=== PATIENT | male | born 1945 | race Caucasian/White ===

== ENCOUNTER 2018-12-28 09:40 | Emergency (ER) | payer BC, MEDICARE ==
[2018-12-28 09:57] VITALS: BP 149/89
--- NOTE | 2018-12-28 09:58 | UC ---
Throat Pain/Nasal Loc HPI - HPI Summary HPI Summary: 9 days of sore throat and intermittent cough in the AM. Has been febrile in the beginning reaching 102F. Occasional coughing from mucus that drips into his throat. has not tried anything and nothing makes it better/worse. - History of Current Complaint Chief Complaint: UCGeneralIllness Stated Complaint: SORE THROAT FEVER CONGESTION Time Seen by Provider: 12/28/18 09:57 Hx Obtained From: Patient Pain Intensity: 3 Pain Scale Used: 0-10 Numeric - Allergies/Home Medications Allergies/Adverse Reactions: Allergies Allergy/AdvReac Type Severity Reaction Status Date / Time Penicillins Allergy Hives Verified 12/28/18 09:56 Sulfa (Sulfonamide Allergy Hives Verified 12/28/18 09:56 Antibiotics) contrast dye Allergy anaph Uncoded 12/28/18 09:56 PMH/Surg Hx/FS Hx/Imm Hx - Additional Past Medical History Additional PMH: no chronic conditions. Previously Healthy: Yes - Surgical History Surgical History: Yes Surgery Procedure, Year, and Place: appy craniotomies - Family History Known Family History: Positive: Non-Contributory - Social History Alcohol Use: None Substance Use Type: None Smoking Status (MU): Former Smoker Review of Systems All Other Systems Reviewed And Are Negative: Yes Constitutional: Positive: Fever. Negative: Chills, Fatigue Skin: Negative: Rash ENT: Positive: Sore Throat, Sinus Congestion. Negative: Ear Ache Respiratory: Positive: Cough Cardiovascular: Positive: Negative Neurological: Negative: Headache Physical Exam Triage Information Reviewed: Yes Appearance: Well-Appearing Vital Signs: Initial Vital Signs Temp 98.6 F 12/28/18 09:51 Pulse 85 12/28/18 09:51 Resp 16 12/28/18 09:51 BP 149/89 12/28/18 09:51 Pulse Ox 100 12/28/18 09:51 Vital Signs Reviewed: Yes Eyes: Positive: Conjunctiva Clear ENT: Positive: Pharyngeal erythema, TMs normal, Other - few vesciles in oropharynx Neck: Positive: Supple, Nontender, No Lymphadenopathy Respiratory Exam: Normal Cardiovascular Exam: Normal Neurological: Positive: Alert Skin: Negative: Rashes Throat Pain/Nasal Course/Dx - Course Course Of Treatment: Pharyngitis fever at home and rapid strep neg. today. On exam there was few vesicles leading me to think it may be a coxsackie virus of some type but unclear. Vitals are good today. Will tx pain as this is viral. - Differential Dx/Diagnosis Provider Diagnosis: Pharyngitis Discharge ED - Sign-Out/Discharge Documenting (check all that apply): Patient Departure All imaging exams completed and their final reports reviewed: No Studies - Discharge Plan Condition: Good Disposition: HOME Prescriptions: Dextromethorphan/Benzocaine [Cepacol Sorethroat-Cough Monique] 1 each PO QID PRN # 90 lozenge PRN Reason: pain Patient Education Materials: Pharyngitis (ED) Referrals: No Primary Care Phys,NOPCP [Primary Care Provider] - Additional Instructions: You do not have strep. - Billing Disposition and Condition Condition: GOOD Disposition: Home
== END 2018-12-28 10:30 | disposition home or self-care (01) ==
LOC: UCEAST 09:40
DX: J02.9 Acute pharyngitis, unspecified (principal); Z88.2 Allergy status to sulfonamides; Z88.0 Allergy status to penicillin; Z87.891 Personal history of nicotine dependence
CPT/HCPCS: 87651; 99212; G0463